=== PATIENT | female | born 1955 | race Caucasian/White ===

== ENCOUNTER 2017-05-22 12:04 | Emergency (ER) | payer BC ==
[2017-05-22] MEDS ORDERED: METHYLPREDNISOLONE PF 125MG/VIAL IVP ONE (12:18)
[2017-05-22] MEDS ORDERED: DIPHENHYDRAMINE HCL IV 50 MG/ML VIAL IV ONE (12:19)
--- NOTE | 2017-05-22 12:26 | Emergency Department Record ---
History of Present Illness - General Chief complaint: Allergic Reaction Stated complaint: raection to cardiolyte Time Seen by Provider: 05/22/17 12:22 Source: Patient, RN notes reviewed Mode of Arrival: Ambulatory - History of Present Illness Initial Comments: itching and hives and injected with sestambi for her cardiolyte stress test. will check with Dr. Rodrigues on the second injection. No throat swelling and no breathing or BP problems. MD Complaint: Hives Onset/Timin -: Minutes(s) Exposure: Medication Symptoms: Itching, Rash Severity: Moderate Treatment Prior to Arrival: None - Related Data Previous Rx's Medication Instructions Recorded Hydrocodone/Acetaminophen [[place] 1 tab PO Q6H PRN #20 tab 04/20/16 7.5mg/325mg] Diphenhydramine HCl [Benadryl] 25 mg PO Q6H #30 cap 05/22/17 Prednisone [Prednisone 10Mg] 10 mg PO DAILY #10 tab 05/22/17 Allergies Allergy/AdvReac Type Severity Reaction Status Date / Time cardiolyte Allergy HIVES Uncoded 05/22/17 12:12 Travel Screening - Travel/Exposure Within Last 30 Days Have you traveled within the last 30 days?: No - Travel/Exposure Within Last Year Have you traveled outside the [place] in the last year?: No - Additonal Travel Details Have you been exposed to anyone with a communicable illness?: No - Travel Symptoms Symptom Screening: None Review of Systems Reviewed: No additional complaints except as noted below Constitutional: Reports: As per HPI. Denies: Chills, Fever, Malaise, Night sweats, Weakness, Weight change Eyes: Reports: As per HPI. Denies: Eye discharge, Eye pain, Photophobia, Vision change ENT: Reports: As per HPI. Denies: Congestion, Dental pain, Ear pain, Epistaxis , Hearing loss, Throat pain Respiratory: Reports: As per HPI. Denies: Cough, Dyspnea, Hemoptysis, Stridor, Wheezes Cardiovascular: Reports: As per HPI. Denies: Arrhythmia, Chest pain, Dyspnea on exertion, Edema, Murmurs, Orthopnea, Palpitations, Paroxysmal nocturnal dyspnea, Rheumatic Fever, Syncope Endocrine: Reports: As per HPI. Denies: Fatigue, Heat or cold intolerance, Polydipsia, Polyuria Gastrointestinal: Reports: As per HPI. Denies: Abdominal pain, Constipation, Diarrhea, Hematemesis, Hematochezia, Melena, Nausea, Vomiting Genitourinary: Reports: As per HPI. Denies: Abnormal menses, Discharge, Dyspareunia, Dysuria, Frequency, Hematuria, Incontinence, Retention, Urgency Musculoskeletal: Reports: As per HPI. Denies: Arthralgia, Back pain, Gout, Joint swelling, Myalgia, Neck pain Skin: Reports: As per HPI, Rash. Denies: Bruising, Change in color, Change in hair/nails, Lesions, Pruritus Neurological: Reports: As per HPI. Denies: Abnormal gait, Confusion, Headache, Numbness, Paresthesias, Seizure, Tingling, Tremors, Vertigo, Weakness Psychiatric: Reports: As per HPI. Denies: Anxiety, Auditory hallucinations, Depression, Homicidal thoughts, Suicidal thoughts, Visual hallucinations Hematological/Lymphatic: Reports: As per HPI. Denies: Anemia, Blood Clots, Easy bleeding, Easy bruising, Swollen glands Past Medical History - SOCIAL HISTORY Smoking Status: Former smoker Alcohol Use: None Drug Use: None - RESPIRATORY Hx Respiratory Disorders: Yes Hx Asthma: Yes Hx Sleep Apnea: Yes - CARDIOVASCULAR Hx Cardio Disorders: No - NEURO Hx Neuro Disorders: Yes Hx Headaches: Yes - GI Hx GI Disorders: Yes Hx Reflux: Yes Hx Ulcer: Yes - Hx Genitourinary Disorders: Yes Hx Kidney Stones: Yes Comment:: blocked ureter - ENDOCRINE Hx Endocrine Disorders: No - MUSCULOSKELETAL Hx Musculoskeletal Disorders: Yes Hx Arthritis: Yes - PSYCH Hx Psych Problems: Yes Hx Anxiety: Yes Hx Depression: Yes - HEMATOLOGY/ONCOLOGY Hx Hematology/Oncology Disorders: No Family Medical History Any Significant Family History?: Yes Physical Exam - General General Appearance: Alert, Oriented x3, Cooperative, No acute distress - Head Head exam: Normal inspection - Eye Eye exam: Normal appearance, PERRL Pupils: Normal accommodation - ENT ENT exam: Normal exam, Mucous membranes moist, Normal external ear exam, Normal orophraynx, TM's normal bilaterally Ear exam: Normal external inspection. negative: External canal tenderness Nasal Exam: Normal inspection. negative: Discharge, Sinus tenderness Mouth exam: Normal external inspection, Tongue normal Teeth exam: Normal inspection. negative: Dental caries Throat exam: Normal inspection. negative: Tonsillar erythema, Tonsillar exudate - Neck Neck exam: Normal inspection, Full ROM. negative: Tenderness - Respiratory Respiratory exam: Normal lung sounds bilaterally. negative: Respiratory distress - Cardiovascular Cardiovascular Exam: Regular rate, Normal rhythm, Normal heart sounds - GI/Abdominal GI/Abdominal exam: Soft, Normal bowel sounds. negative: Tenderness - Rectal Rectal exam: Deferred - exam: Deferred - Extremities Extremities exam: Normal inspection, Full ROM, Normal capillary refill. negative: Tenderness - Back Back exam: Reports: Normal inspection, Full ROM. Denies: Muscle spasm, Rash noted, Tenderness - Neurological Neurological exam: Alert, Normal gait, Oriented X3, Reflexes normal - Psychiatric Psychiatric exam: Normal affect, Normal mood - Skin Skin exam: Rash, Other (itchy) Course Vital Signs 05/22/17 12:05 Temperature 98.5 F Pulse Rate 87 Respiratory 16 Rate Blood Pressure 143/70 Pulse Ox 99 - Reevaluation(s) Reevaluation #1: stress canciled by Dr. Rodrigues 05/22/17 13:02 Reevaluation #2: feeling better and legs restless will give ativan IV one mg 05/22/17 13:11 Reevaluation #3: feeling better 05/22/17 13:22 Disposition Clinical Impression: Allergic reaction caused by a drug Qualifiers: Encounter type: initial encounter Qualified Code(s): T78.40XA - Allergy, unspecified, initial encounter Disposition: Home, Self-Care Condition: (1) Good Instructions: Urticaria (ED) Additional Instructions: follow up with Dr. Rodrigues next Prescriptions: Diphenhydramine HCl [Benadryl] 25 mg PO Q6H #30 cap Prednisone [Prednisone 10Mg] 10 mg PO DAILY #10 tab Forms: Patient Portal Access Time of Disposition: 13:06 Quality - Quality Measures Quality Measures: N/A - Blood Pressure Screening Does Patient Have Any of the Following: No Blood Pressure Classification: Hypertensive Reading Systolic Measurement: 143 Diastolic Measurement: 70 Screening for High Blood Pressure: < First Hypertensive BP, F/U Documented > [ G8950] First Hypertensive Follow-up Interventions: Referral to alternative/primary care provider.
[2017-05-22] MEDS ORDERED: LORAZEPAM 2 MG/ML VIAL IV ONE (13:08)
== END 2017-05-22 14:36 | disposition home or self-care (01) ==
LOC: ER 12:04
DX: L50.0 Allergic urticaria (principal); T50.995A Adverse effect of other drugs, medicaments and biological substances, initial encounter; G25.81 Restless legs syndrome; Y92.238 Other place in hospital as the place of occurrence of the external cause
CPT/HCPCS: 99284 ×2; 96374; 96375; J2060; J1200; J2930

== ENCOUNTER 2019-06-10 11:42 | Observation (INO) | payer BC ==
[2019-06-10] MEDS ORDERED: DIAZEPAM 5 MG/1 ML TUBX IVP PRN ×2 (12:52→16:37)
[2019-06-10] MEDS ORDERED: ONDANSETRON HCL IV 4 MG/2 ML VIAL IVP ONE (12:52)
--- NOTE | 2019-06-10 12:59 | Emergency Department Record ---
History of Present Illness - General Chief Complaint: Dizziness Stated Complaint: NAUSEA/DIZZY Time Seen by Provider: 06/10/19 12:41 Source: Patient, Family Mode of Arrival: Ambulatory Limitations: No limitations - History of Present Illness Initial Comments: The patient is here due to the acute onset of dizziness about 2 hours ago which is much worse with any head movement. She was at home when she suddenly became dizzy feeling like the room is spinning. She also had nausea and vomiting. The patient denies any weakness on one side of the body or any speech or vision changes. She has had similar issues in the past many years ago. There has been no hx of trauma, fever, chills, or any recent illnesses. MD Complaint: Dizziness Onset/Timin -: Hour(s) Timing: Sudden onset, Waxing/waning Description: Difficulty walking, Nausea, Off-balance, "Room spinning", Sense of movement - Related Data Home Medications Medication Instructions Recorded Confirmed Last Taken Cranberry 500 mg PO DAILY 06/10/19 06/10/19 06/10/19 Milk Thistle 175 mg PO DAILY 06/10/19 06/10/19 06/10/19 Venlafaxine HCl [Venlafaxine HCl 75 mg PO DAILY 06/10/19 06/10/19 06/10/19 ER] Allergies Allergy/AdvReac Type Severity Reaction Status Date / Time diphenhydramine AdvReac BEHAVIORAL Verified 06/10/19 12:51 [From Benadryl] CHANGES cardiolyte Allergy Unknown HIVES Uncoded 06/10/19 12:51 Review of Systems Constitutional: Denies: Chills, Fever Eyes: Denies: Eye discharge ENT: Denies: Congestion Respiratory: Denies: Cough, Dyspnea Past Medical History - SOCIAL HISTORY Smoking Status: Former smoker Drug Use: None - RESPIRATORY Hx Respiratory Disorders: Yes Hx Asthma: Yes Hx Sleep Apnea: Yes - CARDIOVASCULAR Hx Cardio Disorders: No - NEURO Hx Neuro Disorders: Yes Hx Headaches: Yes - GI Hx GI Disorders: Yes Hx Reflux: Yes Hx Ulcer: Yes - Hx Genitourinary Disorders: Yes Hx Kidney Stones: Yes Comment:: blocked ureter - ENDOCRINE Hx Endocrine Disorders: No - MUSCULOSKELETAL Hx Musculoskeletal Disorders: Yes Hx Arthritis: Yes - PSYCH Hx Psych Problems: Yes Hx Anxiety: Yes Hx Depression: Yes - HEMATOLOGY/ONCOLOGY Hx Hematology/Oncology Disorders: No Physical Exam - General General Appearance: Alert, Oriented x3, Cooperative, No acute distress - Head Head exam: Atraumatic, Normocephalic, Normal inspection - Eye Eye exam: Normal appearance, PERRL, EOMI, Nystagmus - ENT ENT exam: Normal exam, Mucous membranes moist, Normal external ear exam, Normal orophraynx, TM's normal bilaterally Throat exam: Normal inspection. negative: Tonsillar erythema, Tonsillar exudate - Neck Neck exam: Normal inspection, Full ROM. negative: Lymphadenopathy, Tenderness - Respiratory Respiratory exam: Normal lung sounds bilaterally. negative: Respiratory dist ress - Cardiovascular Cardiovascular Exam: Regular rate, Normal rhythm, Normal heart sounds - GI/Abdominal GI/Abdominal exam: Soft, Normal bowel sounds. negative: Tenderness - Extremities Extremities exam: Normal inspection, Full ROM, Normal capillary refill. negative: Tenderness - Back Back exam: Reports: Normal inspection - Neurological Neurological exam: Alert, Normal gait, Oriented X3, Reflexes normal, Other (Neg Drift. Finger to nose WNL bilaterally.). negative: Abnormal gait, Altered, Motor sensory deficit - Psychiatric Psychiatric exam: negative: Anxious Course - Reevaluation(s) Reevaluation #1: The patient is doing a lot better at this time. Her nausea and dizziness are much better but she is still unable to ambulate without falling. On exam her bilateral horizontal nystagmus is improved but still present. The patient continues to have a nonfocal neuro exam and has clear speech, no facial droop, no difficulty swallowing and no visual changes. She is able to get up but due to the persistent dizziness she does not feel comfortable walking. Because of that I did recommend a short stay admission to the hospital and she does agree. I then did discuss the case with Dr. Aguilera and he does accept the admission. 06/10/19 15:02 Medical Decision Making - Data Complexity MDM Data: Labs Ordered and/or Reviewed, X-Ray Ordered and/or Reviewed, EKG Ordered and/or Reviewed, Review and Summary of Old Record Discussed (Brain MRI normal 02/15/19) - Lab Data Result diagrams: 06/10/19 12:35 06/10/19 12:35 - EKG Data -: EKG Interpreted by Me EKG: No Acute Changes, Normal EKG - Radiology Data Radiology results: Report reviewed (Head CT: Neg per Rad.) Disposition Disposition: Admit Clinical Impression: Vertigo Disposition: Still a Patient at [facility] Decision to Admit: Admit from ER Decision to Admit Date: 06/10/19 Decision to Admit Time: 15:05 Accepting Physician: Ale Time Discussed w/Accepting Physician: 15:05 Condition: (2) Stable Forms: Patient Portal Access Time of Disposition: 15:05 Quality - Quality Measures Quality Measures: N/A - Blood Pressure Screening View Details: Yes Does Patient Have Any of the Following: No Blood Pressure Classification: Hypertensive Reading Systolic Measurement: 146 Diastolic Measurement: 66 Screening for High Blood Pressure: < First Hypertensive BP, F/U Documented > [G8950] First Hypertensive Follow-up Interventions: Referral to alternative/primary care provider.
[2019-06-10 13:03] LABS: ABSOLUTE NEUTROPHIL COUNT 3.78; BASO % 0.3 % (0-6); EOS % 2.3 % (0-6); GRAN % 61.2 % (47-80); HEMATOCRIT 41.4 % (35.0-47.0); HEMOGLOBIN 13.4 gm/dl (11.6-16.0); LYMPH % 28.3 % (16-45); MEAN CELL VOLUME 91.4 fl (81-97); MEAN CORPUSCULAR HEMOGLOBIN 29.6 pg (27-33); MEAN CORPUSCULAR HGB CONC 32.4 g/dl (32-36); MEAN PLATELET VOLUME 10.1 fl (7.4-10.4); MONO % 7.9 % (0-9); PLATELET COUNT 334 K/uL (130-400); RED BLOOD COUNT 4.53 M/uL (3.80-5.40); RED CELL DISTRIBUTION WIDTH 12.5 % (11.5-14.5); WHITE BLOOD COUNT W/O DIFF 6.2 K/uL (4.2-12.2)
[2019-06-10 13:41] LABS: BLOOD UREA NITROGEN 16 mg/dL (8-23); CREATININE 0.8 mg/dL (0.5-0.9); EST GLOMERULAR FILTRATION RATE > 60 mL/min
[2019-06-10 13:42] LABS: TOTAL PROTEIN 7.2 g/dL (6.6-8.7)
[2019-06-10 13:44] LABS: GLUCOSE,RANDOM 112 mg/dL (74-109)
[2019-06-10 13:46] LABS: ALT/SGPT 14 U/L (<33); AST/SGOT 20 U/L (10.0-35.0)
[2019-06-10] MEDS ORDERED: PROMETHAZINE HCL 12.5 MG in 0.9 % SODIUM CHLORIDE 100ML 100 ML IVPB ONE (13:46)
[2019-06-10 13:47] LABS: ALB/GLOB RATIO 1.6 (1.1-1.8); ALBUMIN 4.4 g/dL (4.0-5.0); ALKALINE PHOSPHATASE 61 U/L (35-104)
--- NOTE | 2019-06-10 13:47 | CT SCAN REPORT ---
EXAMINATION: CT Head without IV Contrast EXAM DATE: 06/10/2019 1:40 PM TECHNIQUE: Standard protocol CT images of the head were obtained without intravenous contrast. Campos l and sagittal reconstructed images were created. INDICATION: dizziness COMPARISON: 07/09/2010 HAND DOMINANCE: Unknown. ENCOUNTER: Not applicable FINDINGS: 1. There is no intracranial mass, midline shift, extraaxial fluid collection or hemorrhage. 2. The ventricles, sulci and cisterns are normal. 3. There are no suspicious area of altered attenuation. 4. There is no fracture. 5. The visualized aspects of the orbits, paranasal sinuses, and mastoid air cells are normal. IMPRESSION: No acute intracranial abnormality. Dictated by: Nic Hatch MD on 06/10/2019 1:43 PM. .
[2019-06-10] MEDS ORDERED: ONDANSETRON HCL IV 4 MG/2 ML VIAL IVP PRN (16:37)
[2019-06-10] MEDS ORDERED: ACETAMINOPHEN 325 MG TAB PO PRN (16:37)
[2019-06-10] MEDS ORDERED: PROMETHAZINE HCL 12.5 MG in 0.9 % SODIUM CHLORIDE 100ML 100 ML IVPB PRN (16:37)
[2019-06-10] MEDS ORDERED: 0.9 % SODIUM CHLORIDE 1000ML 1,000 ML IV ONE (16:37)
--- NOTE | 2019-06-10 16:40 | History & Physical ---
History of Present Illness - Date of Service Date of Service for History & Physical: 06/10/19 - History of Present Illness History of Present Illness: Mrs. Sher is a 63 y/o female with complaint of dizziness and feeling light headed this morning while at home. The patient states that her symptoms started last week since she began taking Effexor for menopausal symptoms. She was on Lexapro but was told by her primary care that Effexor would be better. She says that she has had like a 'roaring' sound in her ears but didn't have the dizziness initially. She states that this morning while at home she was sitting in her chair and all of sudden began to feel light headed and had some blurring of vision. She denies fainting, chest pain or shortness of breath. She was able to get up from the chair but says she felt like she was going to fall down. She has had Vertigo some years ago and says it feels similar with the exception of the sounds he has been hearing. On presentation the ED the patient still remained quite dizzy and unable to walk without assistance. Initial workup including CBC w/ diff, CMP and Troponins were all negative. CT of the head is unremarkable. The patient is admitted for observation to the general medical floor. PCP: Dr. Kalina Jauregui. Travel Screening - Travel/Exposure Within Last 30 Days Have you traveled within the last 30 days?: No - Travel/Exposure Within Last Year Have you traveled outside the [place] in the last year?: No - Additonal Travel Details Have you been exposed to anyone with a communicable illness?: No - Travel Symptoms Symptom Screening: None Review of Systems Constitutional: Denies: Chills, Fever Eyes: Denies: Eye discharge ENT: Denies: Congestion Respiratory: Denies: Cough, Dyspnea Past Medical History - SOCIAL HISTORY Smoking Status: Former smoker Drug Use: None - RESPIRATORY Hx Respiratory Disorders: Yes Hx Asthma: Yes Hx Sleep Apnea: Yes - CARDIOVASCULAR Hx Cardio Disorders: No - NEURO Hx Neuro Disorders: Yes Hx Headaches: Yes - GI Hx GI Disorders: Yes Hx Reflux: Yes Hx Ulcer: Yes - Hx Genitourinary Disorders: Yes Hx Kidney Stones: Yes Comment:: blocked ureter - ENDOCRINE Hx Endocrine Disorders: No - MUSCULOSKELETAL Hx Musculoskeletal Disorders: Yes Hx Arthritis: Yes - PSYCH Hx Psych Problems: Yes Hx Anxiety: Yes Hx Depression: Yes - HEMATOLOGY/ONCOLOGY Hx Hematology/Oncology Disorders: No Family Medical History Any Significant Family History?: No H&P Meds/Allergies - Allergies Allergies: Allergies Allergy/AdvReac Type Severity Reaction Status Date / Time diphenhydramine AdvReac BEHAVIORAL Verified 06/10/19 12:51 [From Benadryl] CHANGES cardiolyte Allergy Unknown HIVES Uncoded 06/10/19 12:51 - Home Medications Home Medications Medication Instructions Recorded Confirmed Last Taken Celecoxib 100 mg PO BID 06/10/19 06/10/19 06/10/19 Cranberry 500 mg PO DAILY 06/10/19 06/10/19 06/10/19 Ezetimibe 10 mg PO QHS 06/10/19 06/10/19 06/10/19 Milk Thistle 175 mg PO DAILY 06/10/19 06/10/19 06/10/19 Venlafaxine HCl [Venlafaxine HCl 75 mg PO QHS 06/10/19 06/10/19 06/10/19 ER] - Active Medications Active Medications: Current Medications Diazepam (Valium) 2 mg IVP NOW PRN PRN Reason: DIZZINESS Physical Exam - Vital Signs Vital Signs: Vital Signs - Last 24 Hrs Temp Pulse Resp BP Pulse Ox 06/10/19 15:50 100 H 18 144/74 97 06/10/19 12:57 97.8 F 91 H 20 146/66 99 - General General Appearance: Alert, Oriented x3, Cooperative, No acute distress Limitations: No limitations - Head Head exam: Atraumatic, Normocephalic, Normal inspection - Eye Eye exam: Normal appearance, PERRL, EOMI, Nystagmus - ENT ENT exam: Normal exam, Mucous membranes moist, Normal external ear exam, Normal orophraynx, TM's normal bilaterally Throat exam: Normal inspection. negative: Tonsillar erythema, Tonsillar exudate - Neck Neck exam: Normal inspection, Full ROM. negative: Lymphadenopathy, Tenderness - Respiratory Respiratory exam: Normal lung sounds bilaterally. negative: Respiratory distress - Cardiovascular Cardiovascular Exam: Regular rate, Normal rhythm, Normal heart sounds Peripheral Pulses: 2+: Radial (R), Radial (L), Dorsalis Pedis (R), Dorsalis Pedis (L) - GI/Abdominal GI/Abdominal exam: Soft, Normal bowel sounds. negative: Tenderness - Extremities Extremities exam: Normal inspection, Full ROM, Normal capillary refill. negative: Tenderness - Back Back exam: Reports: Normal inspection - Neurological Neurological exam: Alert, Normal gait, Oriented X3, Reflexes normal, Other (Neg Drift. Finger to nose WNL bilaterally.). negative: Abnormal gait, Altered, Motor sensory deficit - Psychiatric Psychiatric exam: negative: Anxious Results - Labs Result Diagrams: 06/10/19 12:35 06/10/19 12:35 Labs Last 24 Hours: Laboratory Results - last 24 hr 06/10/19 06/10/19 12:35 12:35 WBC 6.2 RBC 4.53 Hgb 13.4 Hct 41.4 MCV 91.4 MCH 29.6 MCHC 32.4 RDW 12.5 Plt Count 334 MPV 10.1 Gran % 61.2 Lymphocytes % 28.3 Monocytes % 7.9 Eosinophils % 2.3 Basophils % 0.3 Absolute Neutrophils 3.78 Sodium 138 Potassium 3.9 Chloride 100 Carbon Dioxide 24.0 Anion Gap 14.0 BUN 16 Creatinine 0.8 Estimated GFR > 60 Random Glucose 112 H Calcium 9.4 Total Bilirubin 0.20 AST 20 ALT 14 Alkaline Phosphatase 61 Troponin T < 0.010 Total Protein 7.2 Albumin 4.4 Globulin 2.8 Albumin/Globulin Ratio 1.6 VTE H&P Assessment - Risk for VTE Risk for VTE: Yes Risk Level: Low Risk Assessment Date: 06/10/19 Risk Assessment Time: 16:34 VTE Orders Placed or Will Be Placed: Yes Plan - Detailed Diagnosis and Plan (1) Dizziness Current Visit: Yes Status: Acute Base Code: R42 - DIZZINESS AND GIDDINESS Comment: 06/10/19: - DDx: vertigo, labrinthitis, side-effecto medications. - CT head w/o contrast negative for acute intracranial pathology. EKG w/ normal sinus, no T wave changes. CBC w/ diff, CMP within normal limits. - Stop Effexor. - Continue with IVF @ 100mL/hr, Valium 2mg Q8H PRN, Phengren IV Q6H, Zofran 4mg Q4H PRN and Protonix 40mg IV QD. - Assist with ambulation (2) Seasonal allergies Current Visit: Yes Status: Acute Base Code: J30.2 - OTHER SEASONAL ALLERGIC RHINITIS Comment: 06/10/19: - Resume home dose of Singulair. (3) Full code status Current Visit: Yes Status: Acute Base Code: Z78.9 - OTHER SPECIFIED HEALTH STATUS Comment: 06/10/19: - The patient is full code status.
[2019-06-10] MEDS ORDERED: MONTELUKAST SODIUM 10MG TABLET PO SCH (22:00)
[2019-06-10] MEDS ORDERED: VENLAFAXINE ER 75 MG CAPSULE PO SCH (22:00)
[2019-06-10] MEDS ORDERED: EZETIMIBE 10 MG TABLET PO SCH (22:00)
[2019-06-11] MEDS ORDERED: PANTOPRAZOLE SODIUM 40 MG TABLET PO SCH (07:00)
[2019-06-11] MEDS ORDERED: MECLIZINE 25 MG TABLET PO PRN (08:37)
--- NOTE | 2019-06-11 11:49 | Rehab Evaluation ---
Patient Information - Patient Information Diagnosis: Dizziness Ordered Treatment: PT Evaluate and Treat Status: Initial Evaluation Surgery: No History: Detail (Pt reports experiencing a "bright flash of light" that lasted for about two seconds about 10 days ago, that was followed by the onset of tinnitus that she describes as a roaring sound. On 06/10/19, she developed the sudden onset of dizziness and lightheadness that rendered her unable to walk. She presented to ED and was admitted to [facility] for medical management.) Past Medical/Surgical Hx: PAST MEDICAL/SURGICAL HISTORY Past Surgical History shoulder foot cholecystectomy neck hip hysterectomy csection PMH - Respiratory Hx Respiratory Disorders Yes Hx Asthma Yes Hx Sleep Apnea Yes PMH - Cardiovascular Hx Cardiovascular Disorders No PMH - Neuro Hx Neurological Disorders Yes Hx Dizziness Yes Hx Headaches Yes PMH - GI Hx Gastrointestinal Disorders Yes Hx Gastroesophageal Reflux Yes Hx Ulcer Yes PMH - Hx Genitourinary Disorders Yes Patient No Hx Kidney Stones Yes Comment: blocked ureter PMH - Endocrine Hx Endocrine Disorders No Hx Diabetes No Hx Thyroid Disease No PMH - Musculoskeletal Hx Musculoskeletal Disorders Yes Hx Arthritis Yes PMH - Psych Hx Psychiatric Problems Yes Hx Anxiety Yes Hx Depression Yes PMH - Hematology/Oncology Hx Hematology/Oncology No Disorders Premorbid Status: Detail (Pt was independent with all self care and ADLs, including driving. She required no assistive device for ambulation. She states that she would sometimes feel dizzy randomly, but nothing that limited her activity. She reports having had an episode similar to this about 30 years ago, in which she lost hearing in her right ear.) Social History: Detail (Pt lives with her Deepak in a single story home with a basement and three steps to enter the house, with a single handrail. They have a small dog, Sita. Pt does not need to access the basement for anything regularly. They have a tub/shower combination and the patient prefers to take baths. They are planning to travel to [place] for the winter in a couple of weeks.) Precautions: [place], Fall - Time With Patient Total Time Spent With Patient (Min): 45 Treatment Procedures: Detail (PT Evaluation) Subjective Information - Subjective Information Per Patient (Pt is awake/alert, cooperative for therapy. She is sitting up in bed with head supported and not moving her head much, but moving her eyes some. She states that she is feeling better than she was yesterday. She did become nauseous by the end of the session.) Objective Data - Pain Pain Present: No - Mental Status Patient Orientation: Oriented x3 - Visual Perception Appears within normal limits for therapeutic activities, Other (Pt reports clear vision as long as she doesn't move her head too fast.) - ROM Within normal limits - Strength/Tone Within normal limits - Coordination Deficit (Pt exhibits mild tremor with bringing drink to mouth, exhibits mild ataxia with gait without walker.) - Bed Mobility Independent - Transfers Needs Assist (Required supervision/standby assist for sit/stand transfers to walker and without walker.) - Balance Balance Sitting: Good Balance Standing: Fair (Pt stands w/wide base of support and was somewhat ataxic in static standing, preferred to hold onto something.) - Sensation Intact - Gait Detail (Pt ambulated w/hand held assist from bedside to doorway w/o assistive device, returned to bedside w/B hand held assist. Rested briefly, then ambulated w/front wheeled walker from bedside to doorway w/CGA and back to be dside. Pt ambulated slowly, had wide base of support, but managed walker independently. Verbal cues to pivot to sit on bed.) Therapy Assessment - Therapy Assessment Detail (Pt exhibits mobility and balance impairments consistent w/acute vertigo. It is recommended that she use a walker at home until she feels more steady, and to continue to have supervision. She is likely to benefit from having home or outpatient physical therapy once the acute symptoms subside further.) Patient Education - Patient Education Teaching Topic: Disease Process, Exercise/Activity, Precautions Response: Verbalize Understanding Teaching Method: Discussion Teaching Recipient: Patient, Family Barriers To Learning: None Problem List - Problem List Physical Therapy Problem List: Detail (1. Pt requires contact guard assist for mobility. 2. Pt requires assistive device for ambulation. 3. Pt is experiencing significant vertiginous symptoms and is somewhat movement intolerant.) Goals - Goals Physical Therapy Goals: 1. Pt and family with demonstrate good understanding of using front wheeled walker for mobility at home. Prognosis - Prognosis Good Plan - Plan Physical Therapy Plan: Pt is anticipating being discharged later today. We will follow to determine if she has any other needs.
--- NOTE | 2019-06-11 12:54 | Discharge Summary ---
Providers Discharge Summary Date: 06/11/19 Date of admission: 06/10/19 16:08 Attending physician: JOSE ALONZO Primary care physician: CLARISSE COTTON M.D. Physical Exam - Vital Signs Vital Signs: Vital Signs - Last 24 Hrs Temp Pulse Pulse Resp BP BP BP 06/11/19 11:43 83 20 144/77 06/11/19 07:16 97.9 F 83 16 133/66 06/11/19 04:00 97.9 F 88 17 137/59 06/10/19 20:00 98.1 F 76 18 149/71 06/10/19 16:37 98.5 F 80 20 143/67 06/10/19 15:50 100 H 18 144/74 06/10/19 12:57 97.8 F 91 H 20 146/66 Pulse Ox 06/11/19 11:43 99 06/11/19 07:16 97 06/11/19 04:00 98 06/10/19 20:00 98 06/10/19 16:37 98 06/10/19 15:50 97 06/10/19 12:57 99 - General General Appearance: Alert, Oriented x3, Cooperative, No acute distress Limitations: No limitations - Head Head exam: Atraumatic, Normocephalic, Normal inspection - Eye Eye exam: Normal appearance, PERRL, EOMI, Nystagmus - ENT ENT exam: Normal exam, Mucous membranes moist, Normal external ear exam, Normal orophraynx, TM's normal bilaterally Throat exam: Normal inspection. negative: Tonsillar erythema, Tonsillar exudate - Neck Neck exam: Normal inspection, Full ROM. negative: Lymphadenopathy, Tenderness - Respiratory Respiratory exam: Normal lung sounds bilaterally. negative: Respiratory distress - Cardiovascular Cardiovascular Exam: Regular rate, Normal rhythm, Normal heart sounds Peripheral Pulses: 2+: Radial (R), Radial (L), Dorsalis Pedis (R), Dorsalis Pedis (L) - GI/Abdominal GI/Abdominal exam: Soft, Normal bowel sounds. negative: Tenderness - Extremities Extremities exam: Normal inspection, Full ROM, Normal capillary refill. negative: Tenderness - Back Back exam: Reports: Normal inspection - Neurological Neurological exam: Alert, Normal gait, Oriented X3, Reflexes normal, Other (Neg Drift. Finger to nose WNL bilaterally.). negative: Abnormal gait, Altered, Motor sensory deficit - Psychiatric Psychiatric exam: negative: Anxious Hospitalization - Hospitalization Admission Diagnosis: 1. Acute Vertigo with Inability to Walk. - Problem List/Discharge Diagnosis (1) Dizziness Current Visit: Yes Status: Acute Base Code: R42 - DIZZINESS AND GIDDINESS Comment: 06/11/19: - DDx: vertigo, labrinthitis, side-effecto medications. - CT head w/o contrast negative for acute intracranial pathology. EKG w/ normal sinus, no T wave changes. CBC w/ diff, CMP within normal limits. - Stop Effexor. - Continue with IVF @ 100mL/hr, Antivert 25mg Q8H PRN Zofran 4mg Q4H PRN and Protonix 40mg IV QD. - Assist with ambulation and PT evaluation today shows deficit in coordination, transfering and gait. Recommendation for assistance using rolling fron wheel walker. - Follow up with ENT at discharge. (2) Seasonal allergies Current Visit: Yes Status: Acute Base Code: J30.2 - OTHER SEASONAL ALLERGIC RHINITIS Comment: 06/11/19: - Resume home dose of Singulair. (3) Full code status Current Visit: Yes Status: Acute Base Code: Z78.9 - OTHER SPECIFIED HEALTH STATUS Comment: 06/11/19: - The patient is full code status. - Hospitalization Course Hospital Course: Mrs. Sher is a 63 y/o female with complaint of dizziness and feeling light headed this morning while at home. The patient states that her symptoms started last week since she began taking Effexor for menopausal symptoms. She was on Lexapro but was told by her primary care that Effexor would be better. She says that she has had like a 'roaring' sound in her ears but didn't have the dizziness initially. She states that this morning while at home she was sitting in her chair and all of sudden began to feel light headed and had some blurring of vision. She denies fainting, chest pain or shortness of breath. She was able to get up from the chair but says she felt like she was going to fall down. She has had Vertigo some years ago and says it feels similar with the exception of the sounds he has been hearing. On presentation the ED the patient still remained quite dizzy and unable to walk without assistance. Initial workup including CBC w/ diff, CMP and Troponins were all negative. CT of the head is unremarkable. The patient is admitted for observation to the general medical floor. 06/11/19: The patient still has some dizziness and gait disturbance as a result. She complains of nausea but is able to tolerate a diet without vomiting. PT was consulted for evaluation and noted disturbance with gait, transferring and coordination. Recommendation from PT is for ambulation using a front rolling walker and follow up for PT outpatient. PCP: Dr. Kalina Cotton. Procedures: Imaging and X-Rays 06/10/19 12:52 HEAD WO CONTRAST [CT] Stat Cardiology Procedures 06/10/19 12:51 EKG NOW 06/10/19 16:37 EKG QDX2@0600 Abnormal Labs: Abnormal Lab Results 06/10/19 Range/Units 12:35 Random Glucose 112 H (74-109) mg/dL Condition at Discharge: (2) Stable Discharge Medications - Discharge Medications Prescriptions: Meclizine HCl [Antivert] 25 mg PO Q8H PRN #14 tablet PRN Reason: Dizziness Ondansetron [Zofran Odt] 4 mg PO Q8H PRN #14 tab.rapdis PRN Reason: Nausea Home Medications: Ambulatory Orders Lansoprazole [Prevacid] 30 mg PO DAILY 04/27/15 [Last Taken 06/10/19] Montelukast Sodium [Singulair] 10 mg PO QHS 04/27/15 [Last Taken 06/10/19] Cholecalciferol (Vitamin D3) [Vitamin D3] 2,000 unit PO BID 04/20/16 [Last Taken 06/10/19] Celecoxib 100 mg PO BID 06/10/19 [Last Taken 06/10/19] Cranberry 500 mg PO DAILY 06/10/19 [Last Taken 06/10/19] Ezetimibe 10 mg PO QHS 06/10/19 [Last Taken 06/10/19] Milk Thistle 175 mg PO DAILY 06/10/19 [Last Taken 06/10/19] Meclizine HCl [Antivert] 25 mg PO Q8H PRN #14 tablet 06/11/19 [Last Taken Unknown] Ondansetron [Zofran Odt] 4 mg PO Q8H PRN #14 tab.rapdis 06/11/19 [Last Taken Unknown] Discharge Plan - Discharge Instructions Diet at Discharge: Regular Diet Additional Instructions: Take Antivert 25mg every 8 hours as needed for dizziness. Take Zofran 4mg every 8 hours for nausea/vomiting. Follow up with Dr. Solorzano to investigate your left ear irritation and hear concerns. Call to schedule an appt with your PCP: Dr. Cotton regarding Effexor or an alternative medication for your menopausal symptoms. Quality Measures - Quality Measures Quality Measures: Documentation of Current Medications in Medical Record, Screening for High Blood Pressure and F/U Documented - Current Medications Quality Measure: Measure #130: Documentation of Current Medications Documentation of Current Medications: <Current Medications Documented/Reviewed> [G8427] - Blood Pressure Screening Quality Measure: Screening for High Blood Pressure and Follow-Up Documented Does Patient Have Any of the Following: No Blood Pressure Classification: Hypertensive Reading Systolic Measurement: 144 Diastolic Measurement: 74 Screening for High Blood Pressure: < First Hypertensive BP, F/U Documented > [G8950] First Hypertensive Follow-up Interventions: Lifestyle modifications. Lifestyle Modification: Weight Reduction, Dietary Approaches to Stop Hypertension (DASH) Eating Plan - Elder Abuse Suspicion Index EASI Reference Information: Mello PARK, Reed C, Michaela D, Ashley Fritz.Development and validation of a tool to assist physicians identification of elder abuse: The Elder Abuse Suspicion Index (EASI ). Journal of Elder Abuse and Neglect, 2008; 20 (3): 276-300.
== END 2019-06-11 13:30 | disposition home or self-care (01) ==
LOC: ER 11:42 → MEDSURG 16:08
PROVIDERS: ADMIT Internal Medicine; ATTEND Internal Medicine
DX: R42 Dizziness and giddiness (principal); R26.2 Difficulty in walking, not elsewhere classified; J30.2 Other seasonal allergic rhinitis; R11.2 Nausea with vomiting, unspecified; K21.9 Gastro-esophageal reflux disease without esophagitis; M19.90 Unspecified osteoarthritis, unspecified site; G47.33 Obstructive sleep apnea (adult) (pediatric); Z87.891 Personal history of nicotine dependence
CPT/HCPCS: 99285 ×2; 96365; 96375; 85025; 80053; 84484; 70450; 93005 ×2; 93010; G0378 ×2; J2405 ×2; J3490; 99220; 99239; J2550; J3360